=== PATIENT | male | born 1960 | race Two or more races ===

== ENCOUNTER 2020-04-02 09:56 | Outpatient (CLI) | payer MEDICARE, MEDICAID ==
[2020-04-02 11:18] LABS: C-REACTIVE PROTEIN 0.8 mg/dL (0.0-0.9)
[2020-04-02 11:19] LABS: ALBUMIN 3.8 g/dL (3.4-5.0); BILIRUBIN,TOTAL 0.3 mg/dL (0.2-1.0); CALCIUM, SERUM 9.6 mg/dL (8.5-10.1); CREATININE 7.4 mg/dL (0.6-1.3); MAGNESIUM 2.5 mg/dL (1.8-2.4); POTASSIUM 5.9 mmol/L (3.5-5.1); TOTAL PROTEIN, SERUM 7.6 g/dL (6.4-8.2)
[2020-04-02 11:56] LABS: BASOPHILS % (AUTO) 0.6 % (0.0-2.0); EOSINOPHILS % (AUTO) 5.1 % (0.0-6.0); HEMATOCRIT 41 % (39-51); HEMOGLOBIN 13.5 g/dL (13.5-17.5); LYMPHOCYTES # (AUTO) 0.9 /CMM (0.8-4.8); LYMPHOCYTES % (AUTO) 15.4 % (20.0-44.0); MEAN CORPUSCULAR HGB CONC 33 g/dl (31.0-36.0); MEAN CORPUSCULAR VOLUME 92 fL (80-96); MONOCYTES # (AUTO) 0.6 /CMM (0.1-1.30); MONOCYTES % (AUTO) 9.5 % (2.0-12.0); NEUTROPHILS # (AUTO) 4.2 /CMM (1.8-8.9); NEUTROPHILS % (AUTO) 69.4 % (43.0-81.0); PLATELET COUNT (AUTO) 95 /CMM (150-450); RED BLOOD CELL COUNT(AUTO) 4.46 MIL/uL (4.5-6.0); WHITE BLOOD COUNT (AUTO) 6.1 K/uL (4.3-11.0)
[2020-04-02 19:20] LABS: BAND % (MANUAL) 3 % (0.0-5.0); EOSINOPHILS % (MANUAL) 3 % (0-4); LYMPHOCYTES % (MANUAL) 17 % (16-48); MONOCYTES % (MANUAL) 4 % (0-11.0); NEUTROPHILS % (MANUAL) 73 (42-76)
== END 2020-04-02 23:59 | disposition home or self-care (01) ==
LOC: MSC 09:56
PROVIDERS: ATTEND Internal Medicine
DX: E11.22 Type 2 diabetes mellitus with diabetic chronic kidney disease (principal); I12.0 Hypertensive chronic kidney disease with stage 5 chronic kidney disease or end stage renal disease; N18.6 End stage renal disease; Z99.2 Dependence on renal dialysis; Z79.4 Long term (current) use of insulin; R42 Dizziness and giddiness; H61.23 Impacted cerumen, bilateral; D64.9 Anemia, unspecified; Z79.899 Other long term (current) drug therapy
CPT/HCPCS: 36415; 80053; 80061; 83036; 83735; 84100; 85007; 85025; 85652; 86140; G0463

== ENCOUNTER 2020-05-28 10:45 | Outpatient (CLI) | payer MEDICARE, MEDICAID | END 2020-05-28 23:59 | disposition home or self-care (01) | LOC: MSC 10:45 | PROVIDERS: ATTEND Internal Medicine | DX: G62.9 Polyneuropathy, unspecified (principal); L29.8 Other pruritus; E11.22 Type 2 diabetes mellitus with diabetic chronic kidney disease; I12.0 Hypertensive chronic kidney disease with stage 5 chronic kidney disease or end stage renal disease; N18.6 End stage renal disease; Z99.2 Dependence on renal dialysis; Z79.4 Long term (current) use of insulin; R42 Dizziness and giddiness; H61.23 Impacted cerumen, bilateral; D64.9 Anemia, unspecified; Z79.899 Other long term (current) drug therapy ==

== ENCOUNTER 2020-09-08 09:11 | Outpatient (CLI) | payer MEDICARE, MEDICAID | END 2020-09-08 23:59 | disposition home or self-care (01) | LOC: MSC 09:11 | PROVIDERS: ATTEND Internal Medicine | DX: R42 Dizziness and giddiness (principal); M25.551 Pain in right hip; G62.9 Polyneuropathy, unspecified; E11.22 Type 2 diabetes mellitus with diabetic chronic kidney disease; I12.0 Hypertensive chronic kidney disease with stage 5 chronic kidney disease or end stage renal disease; N18.6 End stage renal disease; Z99.2 Dependence on renal dialysis; Z79.4 Long term (current) use of insulin; H61.23 Impacted cerumen, bilateral; D64.9 Anemia, unspecified; Z79.899 Other long term (current) drug therapy | CPT/HCPCS: 73502; G0463 ==

== ENCOUNTER 2020-09-09 10:30 | Outpatient (CLI) | payer MEDICARE, MEDICAID | END 2020-09-09 23:59 | disposition home or self-care (01) | LOC: VASLAB 10:30 | PROVIDERS: ATTEND Internal Medicine | DX: Z75.3 Unavailability and inaccessibility of health-care facilities (principal) | CPT/HCPCS: G0463 ==

== ENCOUNTER 2020-12-01 09:00 | Outpatient (CLI) | payer MEDICARE, OTHER | END 2020-12-01 23:59 | disposition home or self-care (01) | LOC: MSC 09:00 | PROVIDERS: ATTEND Internal Medicine | DX: M25.512 Pain in left shoulder (principal); R20.0 Anesthesia of skin; M65.342 Trigger finger, left ring finger; R19.09 Other intra-abdominal and pelvic swelling, mass and lump; R42 Dizziness and giddiness; E11.22 Type 2 diabetes mellitus with diabetic chronic kidney disease; I12.0 Hypertensive chronic kidney disease with stage 5 chronic kidney disease or end stage renal disease; N18.6 End stage renal disease; Z99.2 Dependence on renal dialysis; Z79.4 Long term (current) use of insulin; E11.40 Type 2 diabetes mellitus with diabetic neuropathy, unspecified; H61.23 Impacted cerumen, bilateral; D64.9 Anemia, unspecified; M25.552 Pain in left hip; M25.551 Pain in right hip; Z79.899 Other long term (current) drug therapy; Z74.09 Other reduced mobility ==

== ENCOUNTER 2020-12-03 08:44 | Outpatient (CLI) | payer MEDICARE, OTHER | END 2020-12-03 23:59 | disposition home or self-care (01) | LOC: LAB 08:44 | PROVIDERS: ATTEND Internal Medicine | DX: I15.9 Secondary hypertension, unspecified (principal) | CPT/HCPCS: 36415; 82088; 82533; 82627; 83835; 84244 ==

== ENCOUNTER 2020-12-10 12:54 | Outpatient (CLI) | payer MEDICARE, OTHER | END 2020-12-10 23:59 | disposition home or self-care (01) | LOC: MRI 12:54 | PROVIDERS: ATTEND Internal Medicine | DX: M19.012 Primary osteoarthritis, left shoulder (principal); M75.112 Incomplete rotator cuff tear or rupture of left shoulder, not specified as traumatic; M47.812 Spondylosis without myelopathy or radiculopathy, cervical region; M48.02 Spinal stenosis, cervical region; G62.9 Polyneuropathy, unspecified | CPT/HCPCS: 72141-TC; 73221-TC ==

== ENCOUNTER 2020-12-15 09:30 | Outpatient (CLI) | payer MEDICARE, OTHER | END 2020-12-15 23:59 | disposition home or self-care (01) | LOC: MSC 09:30 | PROVIDERS: ATTEND Internal Medicine | DX: M25.512 Pain in left shoulder (principal); R19.09 Other intra-abdominal and pelvic swelling, mass and lump; R20.0 Anesthesia of skin; M65.342 Trigger finger, left ring finger; R42 Dizziness and giddiness; E11.22 Type 2 diabetes mellitus with diabetic chronic kidney disease; I12.0 Hypertensive chronic kidney disease with stage 5 chronic kidney disease or end stage renal disease; N18.6 End stage renal disease; Z99.2 Dependence on renal dialysis; Z79.4 Long term (current) use of insulin; E11.40 Type 2 diabetes mellitus with diabetic neuropathy, unspecified; H61.23 Impacted cerumen, bilateral; D64.9 Anemia, unspecified; M25.552 Pain in left hip; M25.551 Pain in right hip; Z74.09 Other reduced mobility; Z79.899 Other long term (current) drug therapy ==

== ENCOUNTER 2021-04-15 10:15 | Outpatient (CLI) | payer MEDICARE, OTHER | END 2021-04-15 23:59 | disposition home or self-care (01) | LOC: MSC 10:15 | PROVIDERS: ATTEND Internal Medicine | DX: Z51.89 Encounter for other specified aftercare (principal); I69.344 Monoplegia of lower limb following cerebral infarction affecting left non-dominant side; I69.393 Ataxia following cerebral infarction; I69.398 Other sequelae of cerebral infarction; Z79.52 Long term (current) use of systemic steroids; H61.23 Impacted cerumen, bilateral; M25.512 Pain in left shoulder; R19.09 Other intra-abdominal and pelvic swelling, mass and lump; R20.0 Anesthesia of skin; M65.342 Trigger finger, left ring finger; E11.22 Type 2 diabetes mellitus with diabetic chronic kidney disease; I12.0 Hypertensive chronic kidney disease with stage 5 chronic kidney disease or end stage renal disease; N18.6 End stage renal disease; Z99.2 Dependence on renal dialysis; Z79.4 Long term (current) use of insulin; G62.9 Polyneuropathy, unspecified; D64.9 Anemia, unspecified; M25.552 Pain in left hip; M25.551 Pain in right hip; Z74.09 Other reduced mobility; Z79.899 Other long term (current) drug therapy ==

== ENCOUNTER 2021-05-17 08:47 | Outpatient (CLI) | payer MEDICARE, OTHER | END 2021-05-17 23:59 | disposition home or self-care (01) | LOC: CT 08:47 | PROVIDERS: ATTEND Internal Medicine | DX: K57.30 Diverticulosis of large intestine without perforation or abscess without bleeding (principal); K40.20 Bilateral inguinal hernia, without obstruction or gangrene, not specified as recurrent; N28.9 Disorder of kidney and ureter, unspecified; J90 Pleural effusion, not elsewhere classified; J98.11 Atelectasis; N20.0 Calculus of kidney; K59.00 Constipation, unspecified; I70.0 Atherosclerosis of aorta; Z90.49 Acquired absence of other specified parts of digestive tract ==

== ENCOUNTER 2021-07-22 09:57 | Outpatient (CLI) | payer MEDICARE, OTHER ==
[2021-07-22 10:40] LABS: BASOPHILS % (AUTO) 0.8 % (0.0-2.0); EOSINOPHILS % (AUTO) 2.8 % (0.0-6.0); HEMATOCRIT 36 % (39-51); HEMOGLOBIN 12.1 g/dL (13.5-17.5); LYMPHOCYTES # (AUTO) 0.9 K/uL (0.8-4.8); MEAN CORPUSCULAR HGB CONC 33 g/dl (31.0-36.0); MEAN CORPUSCULAR VOLUME 98 fL (80-96); MONOCYTES # (AUTO) 0.6 K/uL (0.1-1.30); MONOCYTES % (AUTO) 9.6 % (2.0-12.0); NEUTROPHILS # (AUTO) 4.5 K/uL (1.8-8.9); NEUTROPHILS % (AUTO) 72.8 % (43.0-81.0); PLATELET COUNT (AUTO) 109 K/uL (150-450); RED BLOOD CELL COUNT(AUTO) 3.74 MIL/uL (4.5-6.0); WHITE BLOOD COUNT (AUTO) 6.2 K/uL (4.3-11.0)
[2021-07-22 11:05] LABS: CALCIUM, SERUM 8.5 mg/dL (8.5-10.1); POTASSIUM 4.4 mmol/L (3.5-5.1)
[2021-07-22 11:12] LABS: CREATININE 7.6 mg/dL (0.6-1.3)
== END 2021-07-22 23:59 | disposition home or self-care (01) ==
LOC: MSC 09:57
PROVIDERS: ATTEND Internal Medicine
DX: Z01.818 Encounter for other preprocedural examination (principal); I77.9 Disorder of arteries and arterioles, unspecified; I69.344 Monoplegia of lower limb following cerebral infarction affecting left non-dominant side; I69.393 Ataxia following cerebral infarction; I69.398 Other sequelae of cerebral infarction; Z79.82 Long term (current) use of aspirin; M25.512 Pain in left shoulder; R19.09 Other intra-abdominal and pelvic swelling, mass and lump; R20.0 Anesthesia of skin; M65.342 Trigger finger, left ring finger; E11.22 Type 2 diabetes mellitus with diabetic chronic kidney disease; I12.0 Hypertensive chronic kidney disease with stage 5 chronic kidney disease or end stage renal disease; N18.6 End stage renal disease; Z99.2 Dependence on renal dialysis; Z79.4 Long term (current) use of insulin; G62.9 Polyneuropathy, unspecified; Z74.09 Other reduced mobility; D64.9 Anemia, unspecified; M25.552 Pain in left hip; M25.551 Pain in right hip
CPT/HCPCS: 36415; 71046; 80048; 85025; 85730; G0463

== ENCOUNTER → 2021-07-23 | Outpatient (CLI) | payer MEDICARE, OTHER | END | disposition home or self-care (01) | LOC: MSC 14:00 | PROVIDERS: ATTEND Internal Medicine | DX: Z01.818 Encounter for other preprocedural examination (principal); I77.9 Disorder of arteries and arterioles, unspecified; I69.344 Monoplegia of lower limb following cerebral infarction affecting left non-dominant side; I69.393 Ataxia following cerebral infarction; I69.398 Other sequelae of cerebral infarction; Z79.82 Long term (current) use of aspirin; M25.512 Pain in left shoulder; R19.09 Other intra-abdominal and pelvic swelling, mass and lump; R20.0 Anesthesia of skin; M65.342 Trigger finger, left ring finger; E11.22 Type 2 diabetes mellitus with diabetic chronic kidney disease; I12.0 Hypertensive chronic kidney disease with stage 5 chronic kidney disease or end stage renal disease; N18.6 End stage renal disease; Z99.2 Dependence on renal dialysis; Z79.4 Long term (current) use of insulin; G62.9 Polyneuropathy, unspecified; Z74.09 Other reduced mobility; D64.9 Anemia, unspecified; M25.552 Pain in left hip; M25.551 Pain in right hip ==

== ENCOUNTER 2022-05-26 14:30 | Outpatient (CLI) | payer MEDICARE, OTHER | END 2022-05-26 23:59 | disposition home or self-care (01) | LOC: MSC 14:30 | PROVIDERS: ATTEND Internal Medicine | DX: R19.09 Other intra-abdominal and pelvic swelling, mass and lump (principal); I69.344 Monoplegia of lower limb following cerebral infarction affecting left non-dominant side; I69.393 Ataxia following cerebral infarction; I69.398 Other sequelae of cerebral infarction; Z79.82 Long term (current) use of aspirin; M25.512 Pain in left shoulder; R20.0 Anesthesia of skin; M65.342 Trigger finger, left ring finger; E11.22 Type 2 diabetes mellitus with diabetic chronic kidney disease; I12.0 Hypertensive chronic kidney disease with stage 5 chronic kidney disease or end stage renal disease; N18.6 End stage renal disease; Z99.2 Dependence on renal dialysis; Z79.4 Long term (current) use of insulin; E11.40 Type 2 diabetes mellitus with diabetic neuropathy, unspecified; Z74.09 Other reduced mobility; D64.9 Anemia, unspecified; M25.552 Pain in left hip; M25.551 Pain in right hip ==